=== PATIENT | male | born 1995 | race Caucasian/White ===

== ENCOUNTER 2018-02-03 18:08 | Emergency (ER) | payer OTHER ==
[~2018-02-03] VITALS: Ht 182.9 cm; Wt 93.9 kg
[2018-02-03 21:24] VITALS: BP 151/88
== END 2018-02-03 21:26 | disposition designated cancer center or children's hospital, planned readmission (85) ==
LOC: EME 18:08 → RME 18:08
DX: T22.211A Burn of second degree of right forearm, initial encounter (principal); W19.XXXA Unspecified fall, initial encounter; X19.XXXA Contact with other heat and hot substances, initial encounter; Y99.0 Civilian activity done for income or pay; I10 Essential (primary) hypertension
CPT/HCPCS: 99281; 99284; J3010; J7030